=== PATIENT | male | born 1970 | race Caucasian/White ===

== ENCOUNTER 2017-01-16 00:07 | Inpatient (IN) | payer OTHER, MEDICARE ==
[~2017-01-16 00:07] MED LIST: ASPIR-LOW81 M1 PO; CELLCEPT250 M1 PO; DIOVAN80 M1 PO; LOVENOX; MACROBID 100 M100 MG; PROGRAF1 M1 PO; PROLOPRIM100 MG; TYLENOL500 MG; VITAMIN C1000 M1 PO; ZOCOR5 M1 PO
[2017-01-16] MEDS ORDERED: ACID REDUCER75 M1 PO (01:22)
[2017-01-16 03:31] LABS: BASO % 0.7 % (0-2); BASO ABSOLUTE COUNT 0.1 tho/cmm (0.0-0.2); EOS % 4.5 % (0-7); EOSINOPHIL ABSOLUTE COUNT 0.6 tho/cmm (0.0-0.7); HCT-HEMATOCRIT 38.4 % (36.0-53.5); HGB-HEMOGLOBIN 12.7 gm/dl (13.5-17.0); IMMATURE GRANULOCYTES ABSOLUTE 0.03 tho/cmm (0-0.03); IMMATURE GRANULOCYTES PERCENT 0.2 % (0-0.3); LYMPH % 15.8 % (20-45); LYMPH ABSOLUTE COUNT 1.9 tho/cmm (0.8-4.5); MCH (MEAN CORPUSCULAR HGB) 30.8 pg (28.0-32.0); MCHC MEAN CORPUSCULAR HGB CONC 33.1 % (32.0-36.0); MCV (MEAN CELL VOLUME) 93.2 fl (82.0-96.0); MEAN PLATELET VOLUME 10.4 cmc (9.4-12.4); MONO % 14.5 % (0-12); MONOCYTE ABSOLUTE COUNT 1.8 tho/cmm (0.0-1.2); NEUTROPHIL ABSOLUTE COUNT 7.9 tho/cmm (1.6-8.0); NEUTROPHIL-AUTOMATED 7.9 tho/cmm (1.6-8.0); NEUTROPHILS % 64.3 % (40-80); PLATELET COUNT 352 tho/cmm (150-450); RED BLOOD COUNT 4.12 mil/cmm (4.40-5.70); WHITE BLOOD COUNT 12.3 tho/cmm (4.0-10.0)
[2017-01-16 04:05] LABS: PROCALCITONIN 0.05 ng/ml (0.05-0.09)
[2017-01-16 04:12] LABS: ALB/GLOB RATIO 0.7 (0.8-2.0); ALBUMIN 3.5 g/dl (3.5-5.0); ALKALINE PHOSPHATASE 79 U/L (33-138); ALT/SGPT 17 U/L (12-78); ANION GAP 14 mmol/L (0-20); AST/SGOT 17 U/L (10-40); BILIRUBIN,TOTAL 1.1 mg/dl (0.0-1.5); BLOOD UREA NITROGEN 15 mg/dl (6-24); CALCIUM 8.6 mg/dl (8.5-10.5); CARBON DIOXIDE-VENOUS 21 mmol/L (22-32); CHLORIDE 108 mmol/l (96-110); CREATININE 0.86 mg/dl (0.60-1.30); GLUCOSE 87 mg/dL (70-110); POTASSIUM 3.7 mmol/L (3.7-5.1); SODIUM 139 mmol/L (135-145); eGFR VALUE FOR BLACK >90 mL/Min
[2017-01-17 05:17] LABS: BASO % 1.2 % (0-2); BASO ABSOLUTE COUNT 0.1 tho/cmm (0.0-0.2); EOS % 11.9 % (0-7); EOSINOPHIL ABSOLUTE COUNT 1.1 tho/cmm (0.0-0.7); HCT-HEMATOCRIT 36.9 % (36.0-53.5); HGB-HEMOGLOBIN 11.8 gm/dl (13.5-17.0); IMMATURE GRANULOCYTES ABSOLUTE 0.02 tho/cmm (0-0.03); IMMATURE GRANULOCYTES PERCENT 0.2 % (0-0.3); LYMPH % 18.4 % (20-45); LYMPH ABSOLUTE COUNT 1.7 tho/cmm (0.8-4.5); MCV (MEAN CELL VOLUME) 93.9 fl (82.0-96.0); MEAN PLATELET VOLUME 10.4 cmc (9.4-12.4); MONO % 15.5 % (0-12); MONOCYTE ABSOLUTE COUNT 1.4 tho/cmm (0.0-1.2); NEUTROPHIL ABSOLUTE COUNT 4.8 tho/cmm (1.6-8.0); NEUTROPHIL-AUTOMATED 4.8 tho/cmm (1.6-8.0); NEUTROPHILS % 52.8 % (40-80); PLATELET COUNT 379 tho/cmm (150-450); RED BLOOD COUNT 3.93 mil/cmm (4.40-5.70)
[2017-01-17 05:44] LABS: ANION GAP 12 mmol/L (0-20); BLOOD UREA NITROGEN 13 mg/dl (6-24); CALCIUM 8.6 mg/dl (8.5-10.5); CARBON DIOXIDE-VENOUS 25 mmol/L (22-32); CHLORIDE 109 mmol/l (96-110); CREATININE 0.93 mg/dl (0.60-1.30); GLUCOSE 78 mg/dL (70-110); PHOSPHOROUS 3.1 mg/dl (2.5-4.9); POTASSIUM 4.1 mmol/L (3.7-5.1); SODIUM 142 mmol/L (135-145); eGFR VALUE FOR BLACK >90 mL/Min
[2017-01-17] MEDS ORDERED: ASPIRIN325 M3 PO (09:46)
[2017-01-17] MEDS ORDERED: CLEOCIN HCL300 M1 PO (09:47)
== END 2017-01-17 13:00 | DRG 315 ==
LOC: EDMED 00:07 → EMR2 04:47 → PCUB 05:47
PROVIDERS: Emergency Medicine; Registered Nurse; ADMIT Hospitalist
DX: T82.868A Thrombosis due to vascular prosthetic devices, implants and grafts, initial encounter (principal); Z94.0 Kidney transplant status; G82.20 Paraplegia, unspecified; Q60.0 Renal agenesis, unilateral; L03.114 Cellulitis of left upper limb; Y83.2 Surgical operation with anastomosis, bypass or graft as the cause of abnormal reaction of the patient, or of later complication, without mention of misadventure at the time of the procedure; S50.12XA Contusion of left forearm, initial encounter; W22.09XA Striking against other stationary object, initial encounter; Y93.89 Activity, other specified; Y92.89 Other specified places as the place of occurrence of the external cause; Y99.0 Civilian activity done for income or pay; Q76.49 Other congenital malformations of spine, not associated with scoliosis; K21.9 Gastro-esophageal reflux disease without esophagitis; Z93.6 Other artificial openings of urinary tract status; Z90.81 Acquired absence of spleen; Z79.899 Other long term (current) drug therapy; Z88.2 Allergy status to sulfonamides; Z88.1 Allergy status to other antibiotic agents; I12.9 Hypertensive chronic kidney disease with stage 1 through stage 4 chronic kidney disease, or unspecified chronic kidney disease; N18.9 Chronic kidney disease, unspecified; E78.00 Pure hypercholesterolemia, unspecified
CPT/HCPCS: G0008; J1650; J2020; J2543; J7030; J7517